=== PATIENT | male | born 1985 | race Caucasian/White ===

== ENCOUNTER 2025-02-27 00:33 | Emergency (ER) | payer BC ==
[2025-02-27 00:48] VITALS: BP 126/72; PULSE 78; RESP 18; TEMP 98.2; BMI 26.2
[2025-02-27] MEDS ORDERED: SUCRALFATE 1 GM TABLET (FP) ONE (01:24)
[2025-02-27] MEDS ORDERED: MAG HYDROX/AL HYDROX/SIMETH 30 ML UNIT-DOSE CUP ONE (01:24)
[2025-02-27] MEDS ORDERED: FAMOTIDINE 20 MG TABLET ONE (01:24)
[2025-02-27] MEDS: FAMOTIDINE 20 MG TABLET PO ONE (01:32)
[2025-02-27] MEDS: MAG HYDROX/AL HYDROX/SIMETH 30 ML UNIT-DOSE CUP PO ONE (01:32)
[2025-02-27] MEDS: SUCRALFATE 1 GM TABLET (FP) PO ONE (01:32)
[2025-02-27] MEDS ORDERED: LIDOCAINE VISCOUS 2% ORAL/TOP 15 ML UNIT-DOSE CUP ONE (02:05)
[2025-02-27] MEDS: LIDOCAINE VISCOUS 2% ORAL/TOP 100 ML BOTTLE MM ONE (02:05)
== END 2025-02-27 02:22 | disposition home or self-care (01) ==
LOC: JER 00:33
DX: K21.9 Gastro-esophageal reflux disease without esophagitis (principal); R10.13 Epigastric pain
CPT/HCPCS: 93005; 93010; 99283-25